=== PATIENT | male | born 1950 | race Caucasian/White ===

== ENCOUNTER 2019-09-28 10:49 | Emergency (ER) | payer OTHER ==
[~2019-09-28] VITALS: Ht 185.4 cm; Wt 90.7 kg
[2019-09-28 11:30] VITALS: BP 138/72
--- NOTE | 2019-09-28 11:54 | PHYS DOC ---
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 Patient has left shoulder pain and left humerus pain. Patient rates his pain a 7 out of 10. He states he has been using icy hot at home. Review of Systems Review of Systems Musculoskeletal: Denies back pain. Left shoulder and humerus joint pain [] All other systems were reviewed and found to be within normal limits, except as documented in this note. Physical Exam Physical Exam Constitutional: Well developed, well nourished, no acute distress, non-toxic appearance. [] HENT: Normocephalic, atraumatic, bilateral external ears normal, oropharynx moist, no oral exudates, nose normal. [] Eyes: PERRLA, EOMI, conjunctiva normal, no discharge. [] Neck: Normal range of motion, no tenderness, supple, no stridor. [] Cardiovascular:Heart rate regular rhythm, no murmur [] Lungs & Thorax: Bilateral breath sounds clear to auscultation [] Abdomen: Bowel sounds normal, soft, no tenderness, no masses, no pulsatile masses. [] Skin: Bruising to lateral left humerus. Warm, dry, no erythema, no rash. [] Back: No tenderness, no CVA tenderness. [] Extremities: Lateral humerus and shoulder tenderness, no cyanosis, no clubbing, limited ROM in left shoulder due to pain , no edema. [] Neurologic: Alert and oriented X 3, normal motor function, normal sensory function, no focal deficits noted. [] Psychologic: Affect normal, judgement normal, mood normal. [] Current Patient Data Vital Signs Vital Signs Date Time Temp Pulse Resp B/P (MAP) Pulse Ox O2 Delivery O2 Flow Rate FiO2 09/28/19 11:30 98.1 80 16 138/72 (94) 100 Room Air 98.1 EKG EKG [] Radiology/Procedures Radiology/Procedures [] Impressions: [facility] [address] [place] [address] IMAGING REPORT Signed PATIENT: EVE GRAVES ACCOUNT: [id number] : 1950 LOCATION: ER AGE: 69 SEX: M EXAM STATUS: PRE ER ORD. PHYSICIAN: SINDY RODRIGES APRN REASON: fall X4 days ago. left shoulder/humerus pain. bruising to upper extremity PROCEDURE: HUMERUS LEFT Examination: 2 views of the left humerus and 2 views of the left shoulder HISTORY: History of fall, pain COMPARISON: None available. FINDINGS: The humerus head is within the glenoid. There is no acute fracture identified in the left shoulder and left humerus region. Mild joint space loss identified in the glenohumeral joint, acromioclavicular joint. IMPRESSION: 1. No acute osseous findings. Electronically signed by: Fran Thornton MD (09/28/2019 12:15 PM) [id number] DICTATED and SIGNED BY: FRAN THORNTON MD DATE: 09/28/19 1214 [facility] [address] [place] [address] IMAGING REPORT Signed PATIENT: EVE GRAVES ACCOUNT: [id number] : 1950 LOCATION: ER AGE: 69 SEX: M EXAM STATUS: PRE ER ORD. PHYSICIAN: SINDY RODRIGES APRN REASON: fall X4 days ago. left shoulder/humerus pain. bruising to upper ex tremity PROCEDURE: SHOULDER 2+V LEFT Examination: 2 views of the left humerus and 2 views of the left shoulder HISTORY: History of fall, pain COMPARISON: None available. FINDINGS: The humerus head is within the glenoid. There is no acute fracture identified in the left shoulder and left humerus region. Mild joint space loss identified in the glenohumeral joint, acromioclavicular joint. IMPRESSION: 1. No acute osseous findings. Electronically signed by: Fran Thornton MD (09/28/2019 12:15 PM) [id number] DICTATED and SIGNED BY: FRAN THORNTON MD DATE: 09/28/19 1215 Course & Med Decision Making Course & Med Decision Making Bruising to the lateral left humerus. Tenderness with palpation to the lateral left shoulder and left humerus. Patient has limited range of motion of the left shoulder due to pain. Patient has full range of motion to his left elbow. No forearm tenderness. There is no deformities seen or felt. No joint laxity or swelling. Skin pink warm and dry. Radial pulse strong and present. Cap refill less than 3 seconds. Denies hitting his head, LOC, head pain, dizziness, visual changes, abdominal pain, back pain, neck pain, nausea, vomiting. Full range of motion of the neck and in the back. No tenderness to the back, the spine, the neck. PERRLA. Speaks in full clear sentences. Ambulatory with a steady gait. Alert and oriented. Denies any numbness or tingling. Patient is given a arm sling. Dragon Disclaimer Dragon Disclaimer This electronic medical record was generated, in whole or in part, using a voice recognition dictation system. Departure Departure Impression: Primary Impression: Fall Additional Impression: Contusion Disposition: 01 HOME, SELF-CARE Condition: STABLE Patient Instructions: Contusion Additional Instructions: Follow-up with primary care provider. Continue using ice, heat and ibuprofen to help with pain. Problem Qualifiers Primary Impression: Fall Encounter type: initial encounter Qualified Codes: W19.XXXA - Unspecified fall, initial encounter Additional Impression: Contusion Encounter type: initial encounter Contusion area: upper arm Laterality: left Qualified Codes: S40.022A - Contusion of left upper arm, initial encounter SINDY RODRIGES [employer] Sep 28, 2019 11:54
--- NOTE | 2019-09-28 12:18 | RAD ---
Examination: 2 views of the left humerus and 2 views of the left shoulder HISTORY: History of fall, pain COMPARISON: None available. FINDINGS: The humerus head is within the glenoid. There is no acute fracture identified in the left shoulder and left humerus region. Mild joint space loss identified in the glenohumeral joint, acromioclavicular joint. IMPRESSION: 1. No acute osseous findings. Electronically signed by: Fran Seals MD (09/28/2019 12:15 PM) [id number]
== END 2019-09-28 12:47 | disposition home or self-care (01) ==
LOC: ER 10:49
DX: S40.022A Contusion of left upper arm, initial encounter (principal); W00.0XXA Fall on same level due to ice and snow, initial encounter; Y93.89 Activity, other specified; Y92.098 Other place in other non-institutional residence as the place of occurrence of the external cause; Y99.8 Other external cause status
CPT/HCPCS: 73030; 73060; 99284

== ENCOUNTER → 2020-11-10 | Outpatient (CLI) | payer BC, MEDICARE ==
[2020-10-02 11:22] VITALS: BP 128/68
[~2020-11-10] MED LIST: APIX5TAB PO; ATOR40TA59 PO; CONTRAST GIVEN. MC PRN; DOXY100T PO; GLIP5TAB10 PO; INSU100I27 SQ; IOHEXOL 350 MG/ML 100 ML VIAL. IV ONE; LISI40TA6 PO; PRED-220 PO; PRED20TA PO; PRED5TAB PO; SITA1TBM7 PO
[2020-11-10 08:35] LABS: CREATININE 0.9 mg/dL (0.7-1.3); GFR 83.4
--- NOTE | 2020-11-10 18:23 | RAD ---
PQRS Compliance Statement: One or more of the following individualized dose reduction techniques were utilized for this examinat ion: 1. Automated exposure control 2. Adjustment of the mA and/or kV according to patient size 3. Use of iterative reconstruction technique CTA CHEST History: n: PULMONARY EMBOLISM / Comparison: CT PE, September 29, 2020. Technique: Helical CT of the chest was performed after the administration of 90 cc of Omnipaque 350 intravenous contrast according to PE protocol. Axial and coronal reconstructions were obtained. 3-D MIP images were constructed to better evaluate the pulmonary arteries. Findings: Pulmonary arteries are adequately opacified. There is no evidence of pulmonary embolism. The multiple bilateral pulmonary emboli on prior study have resolved. There is no evidence of right ventricular s train. No thoracic aortic dissection. There are subcentimeter bilateral hilar lymph nodes. No mediastinal ad enopathy. There is a 9 mm hypodense right thyroid nodule. The cardiac size is normal, no pericardial effusion. The central airways are patent. Stable 6 mm nodule in the right lung apex. There is nodular consolida tion in the superior segment of the right lower lobe, measuring 2 cm. The previously seen groundglass and consolidative opacities in the posterior bilateral lower lobes and lateral left upper lobe have resolved. There is nodular consolidation in the left lower lobe measuring 3.2 cm. There is atelectasi s or scarring in the posterior right lower lobe. The visualized upper abdomen is unremarkable. There is degenerative endplate spurring of the thoracic spine. IMPRESSION: 1. There is no CT evidence of pulmonary embolus. 2. There are nodular consolidations in the bilateral lower lobes that may be infectious/inflammatory . Recommend CT chest follow-up in 3 months. Electronically signed by: Festus Nicholson MD (11/10/2020 6:20 PM) [id number]
== END ==
LOC: CT 10:33
PROVIDERS: ATTEND Internal Medicine Critical Care Medicine
DX: I26.99 Other pulmonary embolism without acute cor pulmonale (principal); R91.1 Solitary pulmonary nodule
CPT/HCPCS: 36415; 71275; 82565; 84520; Q9967

== ENCOUNTER → 2021-01-16 | Outpatient (CLI) | payer BC, MEDICARE ==
[2020-10-02 11:22] VITALS: BP 128/68
[~2021-01-16] MED LIST changes: -CONTRAST GIVEN. MC PRN; -IOHEXOL 350 MG/ML 100 ML VIAL. IV ONE
--- NOTE | 2021-01-16 11:48 | RAD ---
PQRS Compliance Statement: One or more of the following individualized dose reduction techniques were utilized for this examinat ion: 1. Automated exposure control 2. Adjustment of the mA and/or kV according to patient size 3. Use of iterative reconstruction technique CT THORAX WO 01/16/2021 7:59 AM Indication: Lung nodule, DVT COMPARISON: CT chest 11/10/2020, 09/29/2020 TECHNIQUE: Multiple axial CT images of the chest were obtained without intravenous contrast. Coronal and sagittal reformats are provided FINDINGS: 4 mm solid noncalcified pulmonary nodule identified in the left upper lobe (series 8, image 85). 6 mm groundglass nodule identified in the left upper lobe posteriorly (series 8, image 90). 6 mm solid meyer bpleural nodule identified in the lingula (series 8, image 190). Subpleural nodular opacities identif ied in the super segment right lower lobe measuring up to 6.5 mm (series 8, image 48). Residual subpl eural consolidative changes within the bilateral lower lobes most favoring scarring from the prior ex amination from 09/29/2020. Cystic cavity with thick nodular thickening identified at the posterolater al left lung base measuring up to 1.7 x 1.2 cm. This finding is marginally decreased since 11/10/2020 p reviously measuring 2.0 x 1.4 cm. No pleural effusions, pulmonary vascular congestion or pneumothorax . No pathologically enlarged thoracic lymph nodes. Heart size within normal limits. Thoracic aorta is normal in course and caliber. No suspicious osseous abnormality. Remote healed posterolateral right fifth rib fracture. IMPRESSION: Resolving subpleural reticular interstitial and groundglass changes within the lung bases with persis tent nodular opacity in the left lower lobe, previously measuring 2.0 x 1.4 cm apparent measuring 1.7 x 1.2 cm. 3 month follow-up chest CT is recommended to ensure resolution. Additional solid noncalcified pulmonary nodules appears stable and attention on follow-up exams is re commended as findings remain indeterminate. Electronically signed by: Martina Frye MD (01/16/2021 11:45 AM) [place] [id number]
--- NOTE | 2021-01-16 12:06 | RAD ---
INDICATION: Reason: DVT RT POPLITEAL VEIN; PE SEP 2020; Recheck DVT / Spl. Instructions: / History: COMPARISON: September 2020 TECHNIQUE: Grayscale, color and doppler ultrasound images were obtained of the right lower extremity venous vasculature. RIGHT: No thrombus identified in the common femoral vein, femoral vein, popliteal vein or visualized calf ve ins. IMPRESSION: * No thrombus identified in deep venous system of right lower extremity. Electronically signed by: Miki Aguilar MD (01/16/2021 12:04 PM) [id number]
== END ==
LOC: CT 08:46
PROVIDERS: ATTEND Internal Medicine Critical Care Medicine
DX: R91.1 Solitary pulmonary nodule (principal); I82.431 Acute embolism and thrombosis of right popliteal vein
CPT/HCPCS: 71250; 93971